=== PATIENT | female | born 1985 | race Caucasian/White ===

== ENCOUNTER 2018-09-17 10:23 | Emergency (ER) | payer MEDICAID ==
--- NOTE | 2018-09-17 11:18 | EDM.PDOC ---
ED HPI GENERAL MEDICAL PROBLEM - General Chief Complaint: Respiratory Problem Stated Complaint: COLD HEAD FEELS LIKE ITS GOING TO EXPLODE Time Seen by Provider: 09/17/18 10:45 Source of Information: Reports: Patient History Limitations: Reports: No Limitations - History of Present Illness INITIAL COMMENTS - FREE TEXT/NARRATIVE: HISTORY AND PHYSICAL: History of present illness: Presents reporting a 6 day history of cough and facial pressure. No fever, ear fullness, shortness of breath. She does have some upper chest pain only with the cough. She has a history of hypertension, prediabetes, depression and obesity. She just finished her menstrual period. She does not smoke but occasionally does smoke marijuana Review of systems: As per history of present illness and below otherwise all systems reviewed and negative. Past medical history: As per history of present illness and as reviewed below otherwise noncontributory. Surgical history: As per history of present illness and as reviewed below otherwise noncontributory. Social history: No reported history of drug or alcohol abuse. Family history: As per history of present illness and as reviewed below otherwise noncontributory. Physical exam: HEENT: Atraumatic, normocephalic, pupils reactive, negative for conjunctival pallor or scleral icterus, mucous membranes moist, throat clear, neck supple, nontender, trachea midline. Lungs: Clear to auscultation, breath sounds equal bilaterally, chest nontender. Heart: S1S2, regular, negative for clicks, rubs, or JVD. Abdomen: Soft, nondistended, nontender. Negative for masses or hepatosplenomegaly. Negative for costovertebral tenderness. Pelvis: Stable nontender. Genitourinary: Deferred. Rectal: Deferred. Extremities: Atraumatic, negative for cords or calf pain. Neurovascular unremarkable. Neuro: Awake, alert, oriented. Cranial nerves II through XII unremarkable. Cerebellum unremarkable. Motor and sensory unremarkable throughout. Exam nonfocal. Diagnostics: [] Therapeutics: [] Impression: [] Plan: [] Definitive disposition and diagnosis as appropriate pending reevaluation and review of above. Sinuses Pain Score (Numeric/FACES): 7 - Related Data Allergies Allergy/AdvReac Type Severity Reaction Status Date / Time amoxicillin Allergy Hives Verified 09/17/18 10:39 azithromycin Allergy Hives Verified 09/17/18 10:39 chatman Allergy Hives Verified 09/17/18 10:39 chatman flavor Allergy Hives Verified 09/17/18 10:39 nitrofurantoin Allergy Hives Verified 09/17/18 10:39 [From Macrobid] Penicillins Allergy Hives Verified 09/17/18 10:39 sulfamethoxazole Allergy Hives Verified 09/17/18 10:39 [From Bactrim] trimethoprim [From Bactrim] Allergy Hives Verified 09/17/18 10:39 Home Meds: Home Meds SUMAtriptan [Imitrex] 25 mg PO DAILY 09/17/18 [History] Sertraline [Zoloft] 50 mg PO DAILY 09/17/18 [History] Vitamin D3/Vitamin K2 [D3 + K2 Dots 1,000 Unit] 1,000 unit PO DAILY 09/17/18 [ History] buPROPion HCl [Wellbutrin SR] 150 mg PO BID 09/17/18 [History] guaiFENesin/Codeine Phosphate [Cheratussin AC Syrup] 10 ml PO Q6HR PRN #1 bottle 09/17/18 [Rx] metFORMIN [Glucophage] 500 mg PO DAILY 09/17/18 [History] predniSONE [Prednisone] 2 tab PO DAILY #10 tablet 09/17/18 [Rx] Past Medical History Psychiatric History: Reports: Anxiety, Depression Other Endocrine/Metabolic History: Pre diabetic. Takes metformin - Infectious Disease History Infectious Disease History: Reports: None Social & Family History - Family History Family Medical History: Noncontributory - Tobacco Use Smoking Status *Q: Never Smoker - Caffeine Use Caffeine Use: Reports: Coffee, Energy Drinks, Soda, Tea - Recreational Drug Use Recreational Drug Use: Yes Recreational Drug Type: Reports: Marijuana/Hashish Recreational Drug Use Frequency: Socially ED ROS GENERAL - Review of Systems Review Of Systems: ROS reveals no pertinent complaints other than HPI. ED EXAM, GENERAL - Physical Exam Exam: See Below General Appearance: Alert, No Apparent Distress Ears: Normal External Exam, Normal TMs Nose: Normal Inspection Throat/Mouth: Normal Inspection, Normal Oropharynx Head: Atraumatic, Normocephalic Neck: Normal Inspection. No: Lymphadenopathy (L), Lymphadenopathy (R) Respiratory/Chest: No Respiratory Distress, Lungs Clear, Normal Breath Sounds, Other (Dry hacking cough in exam room) Cardiovascular: Normal Peripheral Pulses, Regular Rate, Rhythm, No Murmur Neurological: Alert, Oriented Psychiatric: Normal Affect, Normal Mood Skin Exam: Warm, Dry, Intact, Normal Color, No Rash Lymphatic: No Adenopathy Course - Vital Signs Last Recorded V/S: Last Vital Signs Temp 36.2 C 09/17/18 10:43 Pulse 111 H 09/17/18 10:43 Resp 17 09/17/18 10:43 BP 123/82 09/17/18 10:43 Pulse Ox 98 09/17/18 10:43 Departure - Departure Time of Disposition: 11:14 Disposition: Home, Self-Care 01 Condition: Good Clinical Impression: Bronchitis - Discharge Information *PRESCRIPTION DRUG MONITORING PROGRAM REVIEWED*: Not Applicable *COPY OF PRESCRIPTION DRUG MONITORING REPORT IN PATIENT CLARA: Not Applicable Referrals: PCP,None [Primary Care Provider] - [facility] [Outside] [facility] [Outside] Additional Instructions: The following information is given to patients seen in the emergency department who are being discharged to home. This information is to outline your options for follow-up care. We provide all patients seen in our emergency department with a follow-up referral. The need for follow-up, as well as the timing and circumstances, are variable depending upon the specifics of your emergency department visit. If you don't have a primary care physician on staff, we will provide you with a referral. We always advise you to contact your personal physician following an emergency department visit to inform them of the circumstance of the visit and for follow-up with them and/or the need for any referrals to a consulting specialist. The emergency department will also refer you to a specialist when appropriate. This referral assures that you have the opportunity for follow-up care with a specialist. All of these measure are taken in an effort to provide you with optimal care, which includes your follow-up. Under all circumstances we always encourage you to contact your private physician who remains a resource for coordinating your care. When calling for follow-up care, please make the office aware that this follow-up is from your recent emergency room visit. If for any reason you are refused follow-up, please contact the [facility] Emergency Department at and asked to speak to the emergency department charge nurse 1. Cough syrup every 6 hours as needed. No driving or operating machinery 2. Prednisone 2 tabs once daily for 5 days. Start today 3. Flonase or Nasacort 2 sprays each nostril at bedtime 4. Drink plenty of fluids 5. Do not smoke pot
== END 2018-09-17 11:20 | disposition home or self-care (01) ==
LOC: MW.ED 10:23
DX: J40 Bronchitis, not specified as acute or chronic (principal); F41.9 Anxiety disorder, unspecified; F32.9 Major depressive disorder, single episode, unspecified; Z79.899 Other long term (current) drug therapy; Z88.1 Allergy status to other antibiotic agents; Z91.02 Food additives allergy status; Z88.0 Allergy status to penicillin; Z88.8 Allergy status to other drugs, medicaments and biological substances
CPT/HCPCS: 99282; 99283